=== PATIENT | male | born 1990 | race Caucasian/White ===

== ENCOUNTER 2017-12-18 16:10 | Inpatient (IN) | payer BC ==
[2017-12-18 16:48] VITALS: BMI 27.4
--- NOTE | 2017-12-18 17:21 | HP ---
CIWA Score - CIWA Score Nausea/Vomitin Muscle Tremors: 2 Anxiety: 3 Agitation: 3 Paroxysmal Sweats: 2 Orientation: 0-Oriented Tacttile Disturbances: 2-Mild Itch/Numbness/Burn Auditory Disturbances: 0-None Visual Disturbances: 0-None Headache: 2-Mild CIWA-Ar Total Score: 16 Admission ROS S - HPI Chief Complaint: " I want to get clean and go to rehab." Allergies/Adverse Reactions: Allergies Allergy/AdvReac Type Severity Reaction Status Date / Time No Known Allergies Allergy Verified 12/18/17 17:08 History of Present Illness: 26 yo male with hx of nicotine and alcohol dependence is here seeking detox for the first time. 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 PMHX: denies any medical problems , psychiatric: depression and anxiety. Denies suicidal / homicidal ideation . Reports hx of suicide attempt at 17 yo while under the influence of cocaine tried to jump off a building. Exam Limitations: No Limitations - Ebola screening Have you traveled outside of the country in the last 21 days: No Have you had contact with anyone from an Ebola affected area: No Have you been sick,other than usual withdrawal symptoms: No Do you have a fever: No - Review of Systems Constitutional: Changes in sleep EENT: reports: No Symptoms Reported Respiratory: reports: No Symptoms reported Cardiac: reports: Chest Pain (hx of chest pain for three month, as per patient was evalauted by PMD one month ago, no CP no cardiac causes) GI: reports: Nausea, Abdominal cramping : reports: Dysuria Musculoskeletal: reports: Back Pain, Joint Pain Integumentary: reports: No Symptoms Reported Neuro: reports: Headache, Dizziness Endocrine: reports: Increased Thirst Hematology: reports: No Symptoms Reported Psychiatric: reports: Orientated x3, Anxious Other Systems: Reviewed and Negative Patient History - Patient Medical History Hx Anemia: No Hx Asthma: No Hx Chronic Obstructive Pulmonary Disease (COPD): No Hx Cancer: No Hx Cardiac Disorders: No Hx Congestive Heart Failure: No Hx Hypertension: No Hx Hypercholesterolemia: No Hx Pacemaker: No HX Cerebrovascular Accident: No Hx Seizures: No Hx Dementia: No Hx Diabetes: No Hx Gastrointestinal Disorders: No Hx Liver Disease: No Hx Genitourinary Disorders: No Hx Sexually Transmitted Disorders: Yes (Hx of gonnorhea.) Hx Renal Disease (ESRD): No Hx Thyroid Disease: No Hx Human Immunodeficiency Virus (HIV): No Hx Hepatitis C: No Hx Depression: Yes Hx Suicide Attempt: Yes (at 17 yo ) Hx Bipolar Disorder: No Hx Schizophrenia: No - Patient Surgical History Past Surgical History: No - PPD History Previous Implant?: Yes Documented Results: Negative w/o proof Implanted On Prior [facility] Admission?: No PPD to be Administered?: Yes - Smoking Cessation Smoking history: Current every day smoker Have you smoked in the past 12 months: Yes Aproximately how many cigarettes per day: 20 Hx Chewing Tobacco Use: No Initiated information on smoking cessation: Yes 'Breaking Loose' booklet given: 12/18/17 - Substance & Tx. History Hx Alcohol Use: Yes Hx Substance Use: Yes Substance Use Type: Alcohol, Marijuana Hx Substance Use Treatment: No - Substances Abused Alcohol Route: Oral Frequency: Daily Amount used: 4-5 24 OZ BEERS Age of first use: 16 Date of Last Use: 12/18/17 Marijuana/Hashish Route: Smoking Frequency: Daily Amount used: 4-5 BLUNTS Age of first use: 16 Date of Last Use: 12/18/17 Family Disease History - Family Disease History Family Disease History: Other: Mother (alive, insomnia, Hep C, Bipolar, Lupus, Liver Cirrhosis ) Admission Physical Exam S - Vital Signs Vital Signs: Vital Signs - 24 hr 12/18/17 16:43 Temperature 98.8 F Pulse Rate 66 Respiratory 18 Rate Blood Pressure 121/70 - Physical General Appearance: Yes: Appropriately Dressed, Mild Distress, Sweating, Anxious HEENTM: Yes: EOMI, Hearing grossly Normal, Normal ENT Inspection, Normocephalic , Normal Voice, SHANON, Pharynx Normal, Tm's normal Respiratory: Yes: Chest Non-Tender, Lungs Clear, Normal Breath Sounds, No Respiratory Distress, No Accessory Muscle Use Neck: Yes: Within Normal Limits Breast: Yes: Breast Exam Deferred Cardiology: Yes: Regular Rhythm, Regular Rate Abdominal: Yes: Normal Bowel Sounds, Non Tender, Flat, Soft Genitourinary: Yes: Within Normal Limits Back: Yes: Normal Inspection Musculoskeletal: Yes: full range of Motion, Gait Steady, Pelvis Stable Extremities: Yes: Normal Capillary Refill, Normal Inspection, Normal Range of Motion, Non-Tender Neurological: Yes: supervisor slate splitting II-XII NML intact, Fully Oriented, Alert, Motor Strength 5/5 Integumentary: Yes: Normal Color, Warm, Moist Lymphatic: Yes: Within Normal Limits - Diagnostic (1) Anxious mood Current Visit: Yes Status: Acute (2) Alcohol dependence with withdrawal Current Visit: Yes Status: Acute (3) Nicotine dependence Current Visit: Yes Status: Acute Qualifiers: Nicotine product type: cigarettes (4) Nausea Current Visit: Yes Status: Acute Cleared for Admission [facility] - Detox or Rehab [facility] Level of Care: Medically Managed Detox Regimen/Protocol: Librium [facility] Breath Alcohol Content Breath Alcohol Content: 0 Urine Drug Screen - Results Drug Screen Negative: No Urine Drug Screen Results: THC-Marijuana
[2017-12-18] MEDS ORDERED: LOPERAMIDE HCL 2 MG CAPSULE PO PRN (17:28)
[2017-12-18] MEDS ORDERED: guaiFENesin/D-METHORPHAN HB 10 ML UNIT-DOSE CUPS PO PRN (17:28)
[2017-12-18] MEDS ORDERED: MAGNESIUM CITRATE 300 ML BOTTLE PO PRN (17:28)
[2017-12-18] MEDS ORDERED: hydrOXYzine PAMOATE 50 MG CAPSULE (FP) PO PRN (17:28)
[2017-12-18] MEDS ORDERED: MAG HYDROX/AL HYDROX/SIMETH 30 ML UNIT-DOSE CUP PO PRN (17:28)
[2017-12-18] MEDS ORDERED: MENTHOL/PHENOL 1 EACH UD MM PRN (17:28)
[2017-12-18] MEDS ORDERED: chlordiazePOXIDE HCL 25 MG CAPSULE PO PRN (17:28)
[2017-12-18] MEDS ORDERED: ACETAMINOPHEN 325 MG TABLET (FP) PO PRN (17:28)
[2017-12-18] MEDS ORDERED: MAGNESIUM HYDROX 2400MG/30ML ORAL SUSPENSION 30 ML CUP PO PRN (17:28)
[2017-12-18] MEDS ORDERED: P-EPHED 60MG/TRIPROLIDI 2.5MG TABLET PO PRN (17:28)
[2017-12-18] MEDS ORDERED: IBUPROFEN 400 MG TABLET (FP) PO PRN (17:28)
[2017-12-18] MEDS ORDERED: chlordiazePOXIDE HCL 25 MG CAPSULE PO ONE (18:15)
[2017-12-18] MEDS: THIAMINE HCL 100 MG TABLET (FP) PO SCH (22:12)
[2017-12-18] MEDS: chlordiazePOXIDE HCL 25 MG CAPSULE PO SCH (22:13)
[2017-12-18 23:14] LABS: URINE APPEARANCE CLEAR; URINE BILIRUBIN NEGATIVE (<2.0 mg/dL); URINE COLOR YELLOW; URINE GLUCOSE (UA) NEGATIVE (NEGATIVE); URINE KETONE NEGATIVE (NEGATIVE); URINE LEUK ESTERASE NEGATIVE (NEGATIVE); URINE NITRITE NEGATIVE (NEGATIVE); URINE PROTEIN NEGATIVE (NEGATIVE); URINE UROBILINOGEN NEGATIVE mg/dL (0.2-1.0)
[2017-12-19] MEDS: chlordiazePOXIDE HCL 25 MG CAPSULE PO SCH ×4 (05:24→22:06)
[2017-12-19 10:12] LABS: HEMATOCRIT 44.2 % (35.4-49); MCHC 33.9 g/dl (32.0-35.9); MEAN CELL VOLUME 97.4 fl (80-96); MEAN PLT VOLUME 9.7 fl (7.5-11.1); PLATELET COUNT 197 K/MM3 (134-434); RBC 4.53 M/mm3 (4.00-5.60); RDW 12.3 % (11.9-15.9); WHITE BLOOD COUNT 6.8 K/mm3 (4.0-10.0)
[2017-12-19] MEDS: PRENATAL VITAMINS W/ FOLIC ACID TABLET (FP) PO SCH (10:12)
[2017-12-19] MEDS: NICOTINE 21 MG/24 HOURS TOPICAL PATCH TD SCH (10:12)
--- NOTE | 2017-12-19 10:14 | CONSULT ---
[facility] Psychiatric Consult - Data Date of interview: 12/19/17 Admission source: [facility] Identifying data: Patient is a 26 year old single male, father of two, unemployed, and currently homeless. This is patient's first admission to detox at [facility]. Pt. admitted to for alcohol and marijuana dependence. Substance Abuse History: Smoking Cessation. Smoking history: Current every day smoker. Have you smoked in the past 12 months: Yes. Aproximately how many cigarettes per day: 20. Hx Chewing Tobacco Use: No. Initiated information on smoking cessation: Yes. 'Breaking Loose' booklet given: 12/18/17. - Substance & Tx. History. Hx Alcohol Use: Yes. Hx Substance Use: Yes. Substance Use Type : Alcohol, Marijuana. Hx Substance Use Treatment: No. - Substances Abused. * * Alcohol. Route: Oral. Frequency: Daily. Amount used: 4-5 24 OZ BEERS. Age of first use: 16. Date of Last Use: 12/18/17. Marijuana/Hashish. Route: Smoking. Frequency: Daily. Amount used: 4-5 BLUNTS. Age of first use: 16. Date of Last Use: 12/18/17 Medical History: Denies. Psychiatric History: Pt. denies h/o psychiatric hospitalization and suicide attempt. Pt. is currently court mandated to attend to [facility] outpatient program and reports seeing a psychiatrist whom gave him a prescription of seroquel 100mg. Pt. states he has not picked up the prescription yet. Pt. reports h/o poor sleep but reports sleeping well last night. Physical/Sexual Abuse/Trauma History: Denies. Mental Status Exam - Mental Status Exam Alert and Oriented to: Time, Place, Person Cognitive Function: Good Patient Appearance: Well Groomed Mood: Hopeful Affect: Mood Congruent Patient Behavior: Appropriate, Cooperative Speech Pattern: Clear, Appropriate Voice Loudness: Normal Thought Process: Intact, Goal Oriented Thought Disorder: Not Present Hallucinations: Denies Suicidal Ideation: Denies Homicidal Ideation: Denies Insight/Judgement: Poor Sleep: Fair Muscle strength/Tone: Normal Gait/Station: Normal Psychiatric Findings - Problem List ([place] 1, 2,3) (1) Alcohol dependence with withdrawal Current Visit: Yes Status: Acute Qualifiers: Complication of substance-induced condition: uncomplicated Qualified Code(s ): F10.230 - Alcohol dependence with withdrawal, uncomplicated (2) Nicotine dependence Current Visit: Yes Status: Acute Qualifiers: Nicotine product type: cigarettes Substance use status: in withdrawal Qualified Code(s): F17.213 - Nicotine dependence, cigarettes, with withdrawal (3) Cannabis dependence Current Visit: Yes Status: Acute (4) Substance-induced sleep disorder Current Visit: Yes Status: Acute - Initial Treatment Plan Initial Treatment Plan: Psychoeducation provided. Detoxification in progress. Melatonin 5 mg ordered by [facility]. Pt. requesting to accept melatonin before accepting alternative sleep aids. Will continue to monitor.
[2017-12-19 10:19] LABS: CHLORIDE 106 mmol/L (98-107); POTASSIUM 4.3 mmol/L (3.5-5.1); SODIUM 140 mmol/L (136-145)
--- NOTE | 2017-12-19 10:47 | PN ---
S CIWA - CIWA Score Nausea/Vomitin-No Nausea/No Vomiting Muscle Tremors: 4-Moderate,w/Arms Extend Anxiety: 4-Mod. Anxious/Guarded Agitation: 4-Moderately Restless Paroxysmal Sweats: 1-Minimal Palms Moist Orientation: 0-Oriented Tacttile Disturbances: 0-None Auditory Disturbances: 0-None Visual Disturbances: 0-None Headache: 0-None Present CIWA-Ar Total Score: 13 BHS Progress Note (SOAP) Subjective: ANXIETY,TREMORS,FATIGUE. Objective: 12/19/17 10:46 Vital Signs 12/19/17 12/19/17 05:47 10:10 Temperature 96.8 F L 97.2 F L Pulse Rate 62 69 Respiratory 18 18 Rate Blood Pressure 102/68 112/63 Laboratory Tests 12/18/17 12/19/17 12/19/17 Unknown 07:00 07:00 WBC 6.8 RBC 4.53 Hgb 15.0 Hct 44.2 MCV 97.4 H MCH 33.0 MCHC 33.9 RDW 12.3 Plt Count 197 MPV 9.7 Sodium 140 Potassium 4.3 Chloride 106 Urine Color Yellow Urine Appearance Clear Urine pH 7.0 Ur Specific [place] 1.021 Urine Protein Negative Urine Glucose (UA) Negative Urine Ketones Negative Urine Blood Negative Urine Nitrite Negative Urine Bilirubin Negative Urine Urobilinogen Negative Ur Leukocyte Esterase Negative OTHER LABS PENDING Assessment: 12/19/17 10:47 WITHDRAWAL SX Plan: CONTINUE DETOX
[2017-12-19 11:26] LABS: ALBUMIN 3.8 g/dl (3.4-5.0); ALK PHOS 82 U/L (45-117); ANION GAP 8 (8-16); BILIRUBIN,TOTAL 0.6 mg/dL (0.2-1.0); BLOOD UREA NITROGEN 21 mg/dL (7-18); CALCIUM 8.7 mg/dL (8.5-10.1); CO2 26 mmol/L (21-32); CREATININE 0.9 mg/dL (0.7-1.3); GLUCOSE,RANDOM 85 mg/dL (74-106); SGOT/AST 14 U/L (15-37); SGPT/ALT 26 U/L (12-78); TOT PROT 7.3 g/dl (6.4-8.2)
--- NOTE | 2017-12-19 14:19 | EKG ---
Test Reason : Blood Pressure : / mmHG Vent. Rate : 069 BPM Atrial Rate : 069 BPM P-R Int : 134 ms QRS Dur : 086 ms QT Int : 386 ms P-R-T Axes : 071 078 067 degrees QTc Int : 413 ms NORMAL SINUS RHYTHM WITH SINUS ARRHYTHMIA NORMAL ECG NO PREVIOUS ECGS AVAILABLE Confirmed by MD Zoya, Doyle ([id number]) on 12/19/2017 2:18:32 PM Referred By: Confirmed By:Doyle Kenny MD
[2017-12-19] MEDS: THIAMINE HCL 100 MG TABLET (FP) PO SCH (22:06)
[2017-12-19] MEDS: MELATONIN 5 MG TABLETS PO PRN (22:06)
[2017-12-20] MEDS: chlordiazePOXIDE HCL 25 MG CAPSULE PO SCH ×3 (05:45→17:32)
[2017-12-20] MEDS: NICOTINE 21 MG/24 HOURS TOPICAL PATCH TD SCH (10:04)
[2017-12-20] MEDS: PRENATAL VITAMINS W/ FOLIC ACID TABLET (FP) PO SCH (10:04)
[2017-12-20] MEDS: NICOTINE POLACRILEX 2 MG GUM BC PRN ×3 (10:05→17:33)
--- NOTE | 2017-12-20 10:52 | PN ---
S CIWA - CIWA Score Nausea/Vomitin-No Nausea/No Vomiting Muscle Tremors: 3 Anxiety: 4-Mod. Anxious/Guarded Agitation: 4-Moderately Restless Paroxysmal Sweats: 1-Minimal Palms Moist Orientation: 0-Oriented Tacttile Disturbances: 0-None Auditory Disturbances: 0-None Visual Disturbances: 0-None Headache: 0-None Present CIWA-Ar Total Score: 12 BHS Progress Note (SOAP) Subjective: ANXIETY,SWEATS, FATIGUE. Objective: 12/20/17 10:51 Vital Signs 12/20/17 12/20/17 12/20/17 03:30 06:25 09:29 Temperature 96.9 F L 97.0 F L Pulse Rate 62 74 Respiratory 18 18 18 Rate Blood Pressure 104/70 109/63 Laboratory Tests 12/18/17 12/19/17 12/19/17 Unknown 07:00 07:00 WBC 6.8 RBC 4.53 Hgb 15.0 Hct 44.2 MCV 97.4 H MCH 33.0 MCHC 33.9 RDW 12.3 Plt Count 197 MPV 9.7 Sodium Potassium Chloride Carbon Dioxide Anion Gap BUN Creatinine Creat Clearance w eGFR Random Glucose Calcium Total Bilirubin AST ALT Alkaline Phosphatase Total Protein Albumin Urine Color Yellow Urine Appearance Clear Urine pH 7.0 Ur Specific [place] 1.021 Urine Protein Negative Urine Glucose (UA) Negative Urine Ketones Negative Urine Blood Negative Urine Nitrite Negative Urine Bilirubin Negative Urine Urobilinogen Negative Ur Leukocyte Esterase Negative RPR Titer HIV 1&2 Antibody Screen Negative HIV P24 Antigen Negative 12/19/17 12/19/17 07:00 07:00 WBC RBC Hgb Hct MCV MCH MCHC RDW Plt Count MPV Sodium 140 Potassium 4.3 Chloride 106 Carbon Dioxide 26 Anion Gap 8 BUN 21 H Creatinine 0.9 Creat Clearance w eGFR > 60 Random Glucose 85 Calcium 8.7 Total Bilirubin 0.6 AST 14 L ALT 26 Alkaline Phosphatase 82 Total Protein 7.3 Albumin 3.8 Urine Color Urine Appearance Urine pH Ur Specific [place] Urine Protein Urine Glucose (UA) Urine Ketones Urine Blood Urine Nitrite Urine Bilirubin Urine Urobilinogen Ur Leukocyte Esterase RPR Titer Nonreactive HIV 1&2 Antibody Screen HIV P24 Antigen Assessment: 12/20/17 10:52 WITHDRAWAL SX Plan: CONTINUE DETOX
[2017-12-20] MEDS: chlordiazePOXIDE 5 MG CAPSULE PO SCH (22:26)
[2017-12-20] MEDS: THIAMINE HCL 100 MG TABLET (FP) PO SCH (22:27)
[2017-12-21] MEDS: chlordiazePOXIDE 5 MG CAPSULE PO SCH ×3 (05:34→17:20)
[2017-12-21] MEDS: PRENATAL VITAMINS W/ FOLIC ACID TABLET (FP) PO SCH (10:11)
[2017-12-21] MEDS: NICOTINE POLACRILEX 2 MG GUM BC PRN (10:11)
[2017-12-21] MEDS: NICOTINE 21 MG/24 HOURS TOPICAL PATCH TD SCH (10:11)
--- NOTE | 2017-12-21 10:14 | PN ---
BHS Progress Note (SOAP) Subjective: ALERT O X 3. OOB AMBULATING ON THE UNIT WITH STEADY GAIT. Objective: 12/21/17 10:13 Vital Signs 12/21/17 12/21/17 12/21/17 03:30 06:20 06:30 Temperature 97.0 F L Pulse Rate 70 Respiratory 18 18 18 Rate Blood Pressure 115/67 12/21/17 09:29 Temperature 98.4 F Pulse Rate 72 Respiratory 16 Rate Blood Pressure 100/63 Laboratory Tests 12/18/17 12/19/17 12/19/17 Unknown 07:00 07:00 WBC 6.8 RBC 4.53 Hgb 15.0 Hct 44.2 MCV 97.4 H MCH 33.0 MCHC 33.9 RDW 12.3 Plt Count 197 MPV 9.7 Sodium Potassium Chloride Carbon Dioxide Anion Gap BUN Creatinine Creat Clearance w eGFR Random Glucose Calcium Total Bilirubin AST ALT Alkaline Phosphatase Total Protein Albumin Urine Color Yellow Urine Appearance Clear Urine pH 7.0 Ur Specific [place] 1.021 Urine Protein Negative Urine Glucose (UA) Negative Urine Ketones Negative Urine Blood Negative Urine Nitrite Negative Urine Bilirubin Negative Urine Urobilinogen Negative Ur Leukocyte Esterase Negative RPR Titer HIV 1&2 Antibody Screen Negative HIV P24 Antigen Negative 12/19/17 12/19/17 07:00 07:00 WBC RBC Hgb Hct MCV MCH MCHC RDW Plt Count MPV Sodium 140 Potassium 4.3 Chloride 106 Carbon Dioxide 26 Anion Gap 8 BUN 21 H Creatinine 0.9 Creat Clearance w eGFR > 60 Random Glucose 85 Calcium 8.7 Total Bilirubin 0.6 AST 14 L ALT 26 Alkaline Phosphatase 82 Total Protein 7.3 Albumin 3.8 Urine Color Urine Appearance Urine pH Ur Specific [place] Urine Protein Urine Glucose (UA) Urine Ketones Urine Blood Urine Nitrite Urine Bilirubin Urine Urobilinogen Ur Leukocyte Esterase RPR Titer Nonreactive HIV 1&2 Antibody Screen HIV P24 Antigen Assessment: 12/21/17 10:13 WITHDRAWAL SX Plan: CONTINUE DETOX
[2017-12-21] MEDS: MELATONIN 5 MG TABLETS PO PRN (22:02)
[2017-12-21] MEDS: THIAMINE HCL 100 MG TABLET (FP) PO SCH (22:03)
[2017-12-21] MEDS: chlordiazePOXIDE HCL 10 MG CAPSULE PO SCH (22:03)
[2017-12-22] MEDS: chlordiazePOXIDE HCL 10 MG CAPSULE PO SCH ×2 (05:32→10:19)
[2017-12-22] MEDS: NICOTINE POLACRILEX 2 MG GUM BC PRN (06:48)
[2017-12-22 09:23] VITALS: BP 136/86; PULSE 85; TEMP 98
[2017-12-22] MEDS: NICOTINE 21 MG/24 HOURS TOPICAL PATCH TD SCH (10:19)
[2017-12-22] MEDS: PRENATAL VITAMINS W/ FOLIC ACID TABLET (FP) PO SCH (10:19)
--- NOTE | 2017-12-22 18:13 | PN ---
BHS Progress Note (SOAP) Subjective: Patient denies current Detox symptoms and reports that he feels well overall. Objective: PATIENT A & O X 3, OBSERVED AMBULATING ON UNIT. NO ACUTE DISTRESS. 12/22/17 18:12 Vital Signs Temperature 98.0 F 12/22/17 09:23 Pulse Rate 85 12/22/17 09:23 Respiratory Rate 18 12/22/17 09:23 Blood Pressure 136/86 12/22/17 09:23 O2 Sat by Pulse Oximetry (%) Laboratory Tests 12/18/17 12/19/17 12/19/17 Unknown 07:00 07:00 WBC 6.8 RBC 4.53 Hgb 15.0 Hct 44.2 MCV 97.4 H MCH 33.0 MCHC 33.9 RDW 12.3 Plt Count 197 MPV 9.7 Sodium Potassium Chloride Carbon Dioxide Anion Gap BUN Creatinine Creat Clearance w eGFR Random Glucose Calcium Total Bilirubin AST ALT Alkaline Phosphatase Total Protein Albumin Urine Color Yellow Urine Appearance Clear Urine pH 7.0 Ur Specific [place] 1.021 Urine Protein Negative Urine Glucose (UA) Negative Urine Ketones Negative Urine Blood Negative Urine Nitrite Negative Urine Bilirubin Negative Urine Urobilinogen Negative Ur Leukocyte Esterase Negative RPR Titer HIV 1&2 Antibody Screen Negative HIV P24 Antigen Negative 12/19/17 12/19/17 07:00 07:00 WBC RBC Hgb Hct MCV MCH MCHC RDW Plt Count MPV Sodium 140 Potassium 4.3 Chloride 106 Carbon Dioxide 26 Anion Gap 8 BUN 21 H Creatinine 0.9 Creat Clearance w eGFR > 60 Random Glucose 85 Calcium 8.7 Total Bilirubin 0.6 AST 14 L ALT 26 Alkaline Phosphatase 82 Total Protein 7.3 Albumin 3.8 Urine Color Urine Appearance Urine pH Ur Specific [place] Urine Protein Urine Glucose (UA) Urine Ketones Urine Blood Urine Nitrite Urine Bilirubin Urine Urobilinogen Ur Leukocyte Esterase RPR Titer Nonreactive HIV 1&2 Antibody Screen HIV P24 Antigen LABS NOTED. Assessment: 12/22/17 18:12 COMPLETION OF DETOX REGIMEN. Plan: PATIENT SCHEDULED FOR DISCHARGE FROM DETOX UNIT TODAY.
--- NOTE | 2017-12-22 18:17 | DS ---
[facility] Detox Discharge Summary Admission Date: 12/18/17 Discharge Date: 12/22/17 - History Present History: Alcohol Dependence, Cannabis Dependence Additional Comments: PATIENT GOING TO [facility] ([place] FOR AFTERCARE. PATIENT WAS DISCHARGED FROM DETOX UNIT IN STABLE MEDICAL CONDITION. Pertinent Past History: Anxiety, Depression, Nausea, Nicotine Dependence. - Physical Exam Results Vital Signs: Vital Signs Temperature 98.0 F 12/22/17 09:23 Pulse Rate 85 12/22/17 09:23 Respiratory Rate 18 12/22/17 09:23 Blood Pressure 136/86 12/22/17 09:23 O2 Sat by Pulse Oximetry (%) Pertinent Admission Physical Exam Findings: WITHDRAWAL SYMPTOMS. Laboratory Tests 12/18/17 12/19/17 12/19/17 Unknown 07:00 07:00 WBC 6.8 RBC 4.53 Hgb 15.0 Hct 44.2 MCV 97.4 H MCH 33.0 MCHC 33.9 RDW 12.3 Plt Count 197 MPV 9.7 Sodium Potassium Chloride Carbon Dioxide Anion Gap BUN Creatinine Creat Clearance w eGFR Random Glucose Calcium Total Bilirubin AST ALT Alkaline Phosphatase Total Protein Albumin Urine Color Yellow Urine Appearance Clear Urine pH 7.0 Ur Specific [place] 1.021 Urine Protein Negative Urine Glucose (UA) Negative Urine Ketones Negative Urine Blood Negative Urine Nitrite Negative Urine Bilirubin Negative Urine Urobilinogen Negative Ur Leukocyte Esterase Negative RPR Titer HIV 1&2 Antibody Screen Negative HIV P24 Antigen Negative 12/19/17 12/19/17 07:00 07:00 WBC RBC Hgb Hct MCV MCH MCHC RDW Plt Count MPV Sodium 140 Potassium 4.3 Chloride 106 Carbon Dioxide 26 Anion Gap 8 BUN 21 H Creatinine 0.9 Creat Clearance w eGFR > 60 Random Glucose 85 Calcium 8.7 Total Bilirubin 0.6 AST 14 L ALT 26 Alkaline Phosphatase 82 Total Protein 7.3 Albumin 3.8 Urine Color Urine Appearance Urine pH Ur Specific [place] Urine Protein Urine Glucose (UA) Urine Ketones Urine Blood Urine Nitrite Urine Bilirubin Urine Urobilinogen Ur Leukocyte Esterase RPR Titer Nonreactive HIV 1&2 Antibody Screen HIV P24 Antigen LABS NOTED. - Treatment Hospital Course: Detox Protocol Followed, Detoxed Safely, Responded well, Discharged Condition Good, Rehab Referral Accepted Patient has Accepted a Rehab Referral to: [facility] ([place] - Medication Discharge Medications: Ambulatory Orders Quetiapine Fumarate [Seroquel -] 100 mg PO HS 12/18/17 - Diagnosis (1) Alcohol dependence with withdrawal Status: Acute Qualifiers: Complication of substance-induced condition: uncomplicated Qualified Code(s ): F10.230 - Alcohol dependence with withdrawal, uncomplicated (2) Anxious mood Status: Acute (3) Cannabis dependence Status: Acute (4) Nausea Status: Acute (5) Nicotine dependence Status: Acute Qualifiers: Nicotine product type: cigarettes Substance use status: in withdrawal Qualified Code(s): F17.213 - Nicotine dependence, cigarettes, with withdrawal (6) Substance-induced sleep disorder Status: Acute - AMA Did Patient Leave Against Medical Advice: No
== END 2017-12-22 10:00 | disposition home or self-care (01) | DRG 775 ==
LOC: YASAS 16:10 → Y3N 17:56
PROVIDERS: ADMIT Family Medicine Addiction Medicine; ATTEND Family Medicine Addiction Medicine
PROC: HZ2ZZZZ Detoxification Services for Substance Abuse Treatment (ICD-10-PCS; principal; 2017-12-18)
DX: F10.230 Alcohol dependence with withdrawal, uncomplicated (principal); F12.20 Cannabis dependence, uncomplicated; F17.213 Nicotine dependence, cigarettes, with withdrawal; F41.9 Anxiety disorder, unspecified; F19.282 Other psychoactive substance dependence with psychoactive substance-induced sleep disorder; R11.0 Nausea; Z91.5 Personal history of self-harm; Z86.19 Personal history of other infectious and parasitic diseases
CPT/HCPCS: 36415; 80053; 81003; 85027; 86593; 87389; 93005; 93010

== ENCOUNTER 2018-05-30 15:51 | Inpatient (IN) | payer OTHER ==
[2018-05-30 16:23] VITALS: BMI 27.1
--- NOTE | 2018-05-30 18:48 | HP ---
CIWA Score Nausea/Vomitin (nausea w/ vomiting) Muscle Tremors: 4-Moderate,w/Arms Extend Anxiety: 1-Mildly Anxious Agitation: 4-Moderately Restless Paroxysmal Sweats: 4-Forehead w/Sweat Beads Orientation: 1-Uncertain about Date Tacttile Disturbances: 0-None Auditory Disturbances: 0-None Visual Disturbances: 0-None Headache: 3-Moderate CIWA-Ar Total Score: 22 - Admission Criteria [facility]ASAS Guidelines: Admission for Medically Managed Detox: Requires at least one of the followin. CIWA greater than 12 2. Seizures within the past 24 hours 3. Delirium tremens within the past 24 hours 4. Hallucinations within the past 24 hours 5. Acute intervention needed for co occurring medical disorder 6. Acute intervention needed for co occurring psychiatric disorder 7. Severe withdrawal that cannot be handled at a lower level of care (continued vomiting, continued diarrhea, abnormal vital signs) requiring intravenous medication and/or fluids 8. Patient presents the following: CIWA greater than 12 Admission Criteria Met: Admission criteria met Admission ROS [facility] Chief Complaint: Here for alcohol withdrawal. Allergies/Adverse Reactions: Allergies Allergy/AdvReac Type Severity Reaction Status Date / Time No Known Allergies Allergy Verified 12/18/17 17:08 History of Present Illness: States here for alcohol use disorder w/ co-use of THC, Crystal meth Alcohol use began at age States hx auditory and visual hallucinations when using drugs. Denies AVH at this moment. Hx depression. Has had prior suicide attempts. Denies current thoughts of harming self. Pharmacy verification: Last Vistaril picked up 11/13/17 and last Seroquel picked up in 01/04/18; One hx blackout 3 months ago. One overdose w/ crystal meth in December 2017 Denies seizures. Recent hx numbness fingers and toes Longest sobriety 1 year w/ attending community support group. Denies other significant PMH/PSH Exam Limitations: No Limitations - Ebola screening Have you traveled outside of the country in the last 21 days: No Have you had contact with anyone from an Ebola affected area: No Have you been sick,other than usual withdrawal symptoms: No Do you have a fever: No - Review of Systems Constitutional: Chills, Diaphoresis, Changes in sleep (Difficulty falling and staying asleep - uses Seroquel prn) EENT: reports: Dental Problems (Pain in back teeth. Chews and swallows ok.) Respiratory: reports: No Symptoms reported Cardiac: reports: No Symptoms Reported GI: reports: Nausea (r/t withdrawal), Vomiting (r/t withdrawal) : reports: No Symptoms Reported Musculoskeletal: reports: Back Pain (Chronic LBP sharp shhoting pain from low back up to neck. Pain is a '7'. Increases w/ sitting for a long time. Improves w / laying down.) Integumentary: reports: No Symptoms Reported Neuro: reports: Numbness (Numbness and tingling in fingers and toes x 1-2 weeks. ), Tremors (Tremors and twitching) Endocrine: reports: No Symptoms Reported Hematology: reports: No Symptoms Reported Psychiatric: reports: Judgement Intact, Orientated x3 (Missed date by 1 day), Agitated, Anxious, Depressed (Denies current thoughts of harming self or others) Patient History - Patient Medical History Hx Anemia: No Hx Asthma: No Hx Chronic Obstructive Pulmonary Disease (COPD): No Hx Cancer: No Hx Cardiac Disorders: No Hx Congestive Heart Failure: No Hx Hypertension: No Hx Hypercholesterolemia: No Hx Pacemaker: No HX Cerebrovascular Accident: No Hx Seizures: No Hx Dementia: No Hx Diabetes: No Hx Gastrointestinal Disorders: No Hx Liver Disease: No Hx Genitourinary Disorders: No Hx Sexually Transmitted Disorders: No Hx Renal Disease (ESRD): No Hx Thyroid Disease: No Hx Human Immunodeficiency Virus (HIV): No ( Neg - 2017) Hx Hepatitis C: No Hx Depression: Yes (Denies current thoughts of harming self or others) Hx Suicide Attempt: Yes (Pt states he tried to cut himself 4 months ago under the influence.) Hx Bipolar Disorder: No Hx Schizophrenia: No - Patient Surgical History Past Surgical History: No - PPD History Previous Implant?: Yes Documented Results: Negative w/proof Implanted On Prior [facility] Admission?: Yes Date: 12/20/17 Results: 0 MM PPD to be Administered?: No - Smoking Cessation Smoking history: Current every day smoker Have you smoked in the past 12 months: Yes Aproximately how many cigarettes per day: 20 Hx Chewing Tobacco Use: Yes (Discussed risk of oral cancer) Initiated information on smoking cessation: Yes 'Breaking Loose' booklet given: 05/30/18 - Substance & Tx. History Hx Alcohol Use: Yes Hx Substance Use: Yes Substance Use Type: Alcohol, Marijuana, Tranquilizers (crystal meth) Hx Substance Use Treatment: Yes (detox, rehab) - Substances Abused Alcohol Route: Oral Frequency: Daily Amount used: 12PK BEER AND UP Age of first use: 16 Date of Last Use: 05/30/18 Marijuana/Hashish Route: Smoking Frequency: Daily Amount used: 1/8 OF AN OUNCE Age of first use: 16 Date of Last Use: 05/30/18 CRYSTAL METH Route: Injection Frequency: Daily Amount used: $100 Age of first use: 25 Date of Last Use: 05/28/18 Family Disease History - Family Disease History Family Disease History: Other: Mother (alive, insomnia, Hep C, Bipolar, Lupus, Liver Cirrhosis ) Admission Physical Exam S - Vital Signs Vital Signs: Vital Signs - 24 hr 05/30/18 16:20 Temperature 97.4 F L Pulse Rate 88 Respiratory 18 Rate Blood Pressure 117/63 - Physical General Appearance: Yes: Appropriately Dressed, Mild Distress, Tremorous, Sweating, Anxious HEENTM: Yes: EOMI, Hearing grossly Normal, Normocephalic, Normal Voice, SHANON, Pharynx Normal Respiratory: Yes: Chest Non-Tender, Lungs Clear, Normal Breath Sounds, No Respiratory Distress Neck: Yes: No masses,lesions,Nodules, Supple Breast: Yes: Breast Exam Deferred Cardiology: Yes: Regular Rhythm, Regular Rate, S1, S2 Abdominal: Yes: Flat, Soft, Increased Bowel Sounds, Tenderness (Mid UQ abd tenderness deep palpation. No guarding. No rebound) Genitourinary: Yes: Within Normal Limits Back: Yes: Normal Inspection Musculoskeletal: Yes: full range of Motion, Gait Steady Extremities: Yes: Normal Capillary Refill, Normal Inspection, Normal Range of Motion, Tremors (Tremors hands w/ arms extended) Neurological: Yes: rubber roller grinder II-XII NML intact, Alert, Motor Strength 5/5, Normal Mood /Affect Integumentary: Yes: Normal Color, Dry, Warm Lymphatic: Yes: Within Normal Limits - Diagnostic (1) Methamphetamine dependence Current Visit: Yes Status: Chronic (2) Alcohol dependence with withdrawal Current Visit: Yes Status: Acute Qualifiers: Complication of substance-induced condition: uncomplicated Qualified Code(s ): F10.230 - Alcohol dependence with withdrawal, uncomplicated (3) Cannabis dependence Current Visit: Yes Status: Chronic (4) Nicotine dependence Current Visit: Yes Status: Chronic Qualifiers: Nicotine product type: cigarettes Substance use status: in withdrawal Qualified Code(s): F17.213 - Nicotine dependence, cigarettes, with withdrawal Cleared for Admission [facility] - Detox or Rehab [facility] Level of Care: Medically Managed Detox Regimen/Protocol: Librium [facility] Breath Alcohol Content Breath Alcohol Content: 0 Urine Drug Screen - Results Drug Screen Negative: No Urine Drug Screen Results: THC-Marijuana
[2018-05-30] MEDS ORDERED: MAG HYDROX/AL HYDROX/SIMETH 30 ML UNIT-DOSE CUP PO PRN (19:26)
[2018-05-30] MEDS ORDERED: chlordiazePOXIDE HCL 25 MG CAPSULE PO ONE (19:26)
[2018-05-30] MEDS ORDERED: chlordiazePOXIDE HCL 25 MG CAPSULE PO PRN (19:26)
[2018-05-30] MEDS ORDERED: MAGNESIUM CITRATE 300 ML BOTTLE PO PRN (19:26)
[2018-05-30] MEDS ORDERED: LOPERAMIDE HCL 2 MG CAPSULE PO PRN (19:26)
[2018-05-30] MEDS ORDERED: MAGNESIUM HYDROX 2400MG/30ML ORAL SUSPENSION 30 ML CUP PO PRN (19:26)
[2018-05-30] MEDS ORDERED: ACETAMINOPHEN 325 MG TABLET (FP) PO PRN (19:26)
[2018-05-30] MEDS ORDERED: BENZOCAINE 20 % GEL TUBE MM PRN (19:30)
[2018-05-30] MEDS: THIAMINE HCL 100 MG TABLET (FP) PO SCH (21:15)
[2018-05-30] MEDS: chlordiazePOXIDE HCL 25 MG CAPSULE PO SCH (22:01)
[2018-05-30] MEDS: MELATONIN 5 MG TABLETS PO PRN (22:49)
[2018-05-30] MEDS: NICOTINE POLACRILEX 4 MG GUM BUC PRN (22:49)
[2018-05-30 23:15] LABS: URINE APPEARANCE CLEAR; URINE BILIRUBIN NEGATIVE (<2.0 mg/dL); URINE COLOR LTYELLOW; URINE GLUCOSE (UA) NEGATIVE (NEGATIVE); URINE KETONE NEGATIVE (NEGATIVE); URINE LEUK ESTERASE TRACE (NEGATIVE); URINE NITRITE NEGATIVE (NEGATIVE); URINE PROTEIN NEGATIVE (NEGATIVE); URINE UROBILINOGEN NEGATIVE mg/dL (0.2-1.0)
[2018-05-30 23:20] LABS: URINE HYALINE CAST 1 /lpf; URINE MUCUS RARE
[2018-05-31] MEDS: chlordiazePOXIDE HCL 25 MG CAPSULE PO SCH ×4 (05:27→22:30)
[2018-05-31] MEDS: NICOTINE POLACRILEX 4 MG GUM BUC PRN ×3 (05:28→21:41)
[2018-05-31] MEDS: NICOTINE 21 MG/24 HOURS TOPICAL PATCH TD SCH (10:14)
[2018-05-31] MEDS: PRENATAL VITAMINS W/ FOLIC ACID TABLET (FP) PO SCH (10:14)
[2018-05-31 10:38] LABS: HEMATOCRIT 38.9 % (35.4-49); HEMOGLOBIN 12.8 GM/dL (11.7-16.9); MCH 32.1 pg (25.7-33.7); MCHC 32.9 g/dl (32.0-35.9); MEAN CELL VOLUME 97.4 fl (80-96); MEAN PLT VOLUME 10.1 fl (7.5-11.1); PLATELET COUNT 198 K/MM3 (134-434); RBC 3.99 M/mm3 (4.00-5.60); RDW 12.1 % (11.9-15.9); WHITE BLOOD COUNT 6.9 K/mm3 (4.0-10.0)
[2018-05-31 11:01] LABS: ALBUMIN 3.3 g/dl (3.4-5.0); ALK PHOS 59 U/L (45-117); ANION GAP 7 MMOL/L (8-16); BILIRUBIN,TOTAL 0.2 mg/dL (0.2-1); BLOOD UREA NITROGEN 14 mg/dL (7-18); CALCIUM 8.4 mg/dL (8.5-10.1); CHLORIDE 107 mmol/L (98-107); CO2 27 mmol/L (21-32); CREATININE 0.8 mg/dL (0.55-1.3); GLUCOSE,RANDOM 91 mg/dL (74-106); POTASSIUM 4.1 mmol/L (3.5-5.1); SGOT/AST 10 U/L (15-37); SGPT/ALT 24 U/L (13-61); SODIUM 140 mmol/L (136-145); TOT PROT 6.1 g/dl (6.4-8.2)
--- NOTE | 2018-05-31 11:19 | PN ---
[facility] CIWA - CIWA Score Nausea/Vomitin-Mild Nausea/No Vomiting Muscle Tremors: None Anxiety: 3 Agitation: 3 Paroxysmal Sweats: 2 Orientation: 0-Oriented Tacttile Disturbances: 0-None Auditory Disturbances: 0-None Visual Disturbances: 0-None Headache: 2-Mild CIWA-Ar Total Score: 11 [facility] Progress Note (SOAP) Subjective: PATIENT C/O ANXIETY, RESTLESSNESS, SLEEP DISTURBANCE, SWEATING, HEADACHE AND NAUSEA/DIARRHEA. Objective: 05/31/18 11:17 Vital Signs Temperature 97.8 F 05/31/18 09:31 Pulse Rate 83 05/31/18 09:31 Respiratory Rate 18 05/31/18 09:31 Blood Pressure 119/63 05/31/18 09:31 O2 Sat by Pulse Oximetry (%) Laboratory Tests 05/30/18 05/31/18 05/31/18 22:00 07:00 07:00 WBC 6.9 RBC 3.99 L Hgb 12.8 Hct 38.9 MCV 97.4 H MCH 32.1 MCHC 32.9 RDW 12.1 Plt Count 198 MPV 10.1 Sodium 140 Potassium 4.1 Chloride 107 Carbon Dioxide 27 Anion Gap 7 L BUN 14 Creatinine 0.8 Creat Clearance w eGFR > 60 Random Glucose 91 Calcium 8.4 L Total Bilirubin 0.2 AST 10 L ALT 24 Alkaline Phosphatase 59 Total Protein 6.1 L Albumin 3.3 L Urine Color Ltyellow Urine Appearance Clear Urine pH 6.0 Ur Specific [place] 1.012 Urine Protein Negative Urine Glucose (UA) Negative Urine Ketones Negative Urine Blood Negative Urine Nitrite Negative Urine Bilirubin Negative Urine Urobilinogen Negative Ur Leukocyte Esterase Trace Urine WBC (Auto) 1 Urine RBC (Auto) <1 Hyaline Casts 1 Urine Mucus Rare PE: ALERT AND ORIENTED X 3 SKIN WARM, MILD MOISTURE TO TRUNK AREA EXT FULL ROM, NO EDEMA AMB AD CANDY ANXIOUS 05/31/18 11:19 Assessment: 05/31/18 11:19 WITHDRAWAL SX Plan: CONTINUE DETOX ENCOURAGE ORAL FLUIDS CONTINUE TO MONITOR
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
[2018-05-31] MEDS: THIAMINE HCL 100 MG TABLET (FP) PO SCH (22:30)
[2018-05-31] MEDS: QUEtiapine FUMARATE 50 MG TABLET PO SCH (22:30)
[2018-05-31] MEDS: IBUPROFEN 400 MG TABLET (FP) PO PRN (22:31)
[2018-05-31] MEDS: MELATONIN 5 MG TABLETS PO PRN (23:17)
[2018-06-01] MEDS: chlordiazePOXIDE HCL 25 MG CAPSULE PO SCH ×3 (05:25→17:13)
[2018-06-01] MEDS: NICOTINE 21 MG/24 HOURS TOPICAL PATCH TD SCH (10:42)
[2018-06-01] MEDS: PRENATAL VITAMINS W/ FOLIC ACID TABLET (FP) PO SCH (10:42)
--- NOTE | 2018-06-01 13:33 | PN ---
S CIWA - CIWA Score Nausea/Vomitin Muscle Tremors: 3 Anxiety: 3 Agitation: 3 Paroxysmal Sweats: 3 Orientation: 0-Oriented Tacttile Disturbances: 0-None Auditory Disturbances: 0-None Visual Disturbances: 0-None Headache: 0-None Present CIWA-Ar Total Score: 14 [facility] Progress Note (SOAP) Subjective: Patient denies withdrawal symptoms; patient is anxious Objective: 06/01/18 13:31 Last Vital Signs Temp Pulse Resp BP Pulse Ox 98 F 77 17 101/60 06/01/18 10:10 06/01/18 10:10 06/01/18 10:10 06/01/18 10:10 Laboratory Tests 05/30/18 05/31/18 05/31/18 22:00 07:00 07:00 WBC 6.9 RBC 3.99 L Hgb 12.8 Hct 38.9 MCV 97.4 H MCH 32.1 MCHC 32.9 RDW 12.1 Plt Count 198 MPV 10.1 Sodium Potassium Chloride Carbon Dioxide Anion Gap BUN Creatinine Creat Clearance w eGFR Random Glucose Calcium Total Bilirubin AST ALT Alkaline Phosphatase Total Protein Albumin Urine Color Ltyellow Urine Appearance Clear Urine pH 6.0 Ur Specific [place] 1.012 Urine Protein Negative Urine Glucose (UA) Negative Urine Ketones Negative Urine Blood Negative Urine Nitrite Negative Urine Bilirubin Negative Urine Urobilinogen Negative Ur Leukocyte Esterase Trace Urine WBC (Auto) 1 Urine RBC (Auto) <1 Hyaline Casts 1 Urine Mucus Rare RPR Titer HIV 1&2 Antibody Screen Negative HIV P24 Antigen Negative 05/31/18 05/31/18 07:00 07:00 WBC RBC Hgb Hct MCV MCH MCHC RDW Plt Count MPV Sodium 140 Potassium 4.1 Chloride 107 Carbon Dioxide 27 Anion Gap 7 L BUN 14 Creatinine 0.8 Creat Clearance w eGFR > 60 Random Glucose 91 Calcium 8.4 L Total Bilirubin 0.2 AST 10 L ALT 24 Alkaline Phosphatase 59 Total Protein 6.1 L Albumin 3.3 L Urine Color Urine Appearance Urine pH Ur Specific [place] Urine Protein Urine Glucose (UA) Urine Ketones Urine Blood Urine Nitrite Urine Bilirubin Urine Urobilinogen Ur Leukocyte Esterase Urine WBC (Auto) Urine RBC (Auto) Hyaline Casts Urine Mucus RPR Titer Nonreactive HIV 1&2 Antibody Screen HIV P24 Antigen Labs reviewed Assessment: 06/01/18 13:32 Withdrawal symptoms Plan: Continue detox Encouraged PO water intake
[2018-06-01] MEDS: NICOTINE POLACRILEX 4 MG GUM BUC PRN ×2 (16:35→22:21)
[2018-06-01] MEDS: IBUPROFEN 400 MG TABLET (FP) PO PRN (17:15)
[2018-06-01] MEDS: THIAMINE HCL 100 MG TABLET (FP) PO SCH (22:04)
[2018-06-01] MEDS: chlordiazePOXIDE 5 MG CAPSULE PO SCH (22:04)
[2018-06-01] MEDS: QUEtiapine FUMARATE 50 MG TABLET PO SCH (22:04)
[2018-06-01] MEDS: MELATONIN 5 MG TABLETS PO PRN (22:05)
[2018-06-01] MEDS: MENTHOL/PHENOL 1 EACH UD MM PRN (22:22)
[2018-06-02] MEDS: chlordiazePOXIDE 5 MG CAPSULE PO SCH ×3 (05:45→17:16)
[2018-06-02] MEDS: NICOTINE POLACRILEX 4 MG GUM BUC PRN ×3 (05:48→17:02)
[2018-06-02] MEDS: MENTHOL/PHENOL 1 EACH UD MM PRN (05:49)
[2018-06-02] MEDS: PRENATAL VITAMINS W/ FOLIC ACID TABLET (FP) PO SCH (10:49)
[2018-06-02] MEDS: NICOTINE 21 MG/24 HOURS TOPICAL PATCH TD SCH (10:49)
--- NOTE | 2018-06-02 12:15 | PN ---
[facility] Progress Note (SOAP) Subjective: PT SEEN IN BED. PT REPORTS DETOX PROCEEDING WELL. DENIES ACUTE DISTRESS. Objective: 06/02/18 12:14 Vital Signs 06/02/18 06/02/18 06/02/18 06:30 06:31 09:46 Temperature 97.7 F 96.9 F L Pulse Rate 75 78 Respiratory 18 18 18 Rate Blood Pressure 101/56 L 132/87 Laboratory Tests 05/30/18 05/31/18 05/31/18 22:00 07:00 07:00 WBC 6.9 RBC 3.99 L Hgb 12.8 Hct 38.9 MCV 97.4 H MCH 32.1 MCHC 32.9 RDW 12.1 Plt Count 198 MPV 10.1 Sodium Potassium Chloride Carbon Dioxide Anion Gap BUN Creatinine Creat Clearance w eGFR Random Glucose Calcium Total Bilirubin AST ALT Alkaline Phosphatase Total Protein Albumin Urine Color Ltyellow Urine Appearance Clear Urine pH 6.0 Ur Specific [place] 1.012 Urine Protein Negative Urine Glucose (UA) Negative Urine Ketones Negative Urine Blood Negative Urine Nitrite Negative Urine Bilirubin Negative Urine Urobilinogen Negative Ur Leukocyte Esterase Trace Urine WBC (Auto) 1 Urine RBC (Auto) <1 Hyaline Casts 1 Urine Mucus Rare RPR Titer HIV 1&2 Antibody Screen Negative HIV P24 Antigen Negative 05/31/18 05/31/18 07:00 07:00 WBC RBC Hgb Hct MCV MCH MCHC RDW Plt Count MPV Sodium 140 Potassium 4.1 Chloride 107 Carbon Dioxide 27 Anion Gap 7 L BUN 14 Creatinine 0.8 Creat Clearance w eGFR > 60 Random Glucose 91 Calcium 8.4 L Total Bilirubin 0.2 AST 10 L ALT 24 Alkaline Phosphatase 59 Total Protein 6.1 L Albumin 3.3 L Urine Color Urine Appearance Urine pH Ur Specific [place] Urine Protein Urine Glucose (UA) Urine Ketones Urine Blood Urine Nitrite Urine Bilirubin Urine Urobilinogen Ur Leukocyte Esterase Urine WBC (Auto) Urine RBC (Auto) Hyaline Casts Urine Mucus RPR Titer Nonreactive HIV 1&2 Antibody Screen HIV P24 Antigen Assessment: 06/02/18 12:14 DECREASED W/S Plan: CONTINUE DETOX
[2018-06-02] MEDS: THIAMINE HCL 100 MG TABLET (FP) PO SCH (22:01)
[2018-06-02] MEDS: chlordiazePOXIDE HCL 10 MG CAPSULE PO SCH (22:01)
[2018-06-02] MEDS: QUEtiapine FUMARATE 50 MG TABLET PO SCH (22:01)
[2018-06-02] MEDS: MELATONIN 5 MG TABLETS PO PRN (22:04)
[2018-06-03] MEDS: chlordiazePOXIDE HCL 10 MG CAPSULE PO SCH (05:34)
[2018-06-03] MEDS: MENTHOL/PHENOL 1 EACH UD MM PRN (05:35)
[2018-06-03] MEDS: NICOTINE POLACRILEX 4 MG GUM BUC PRN (05:35)
[2018-06-03 06:23] VITALS: BP 101/59; PULSE 76; TEMP 97.2
--- NOTE | 2018-06-03 11:24 | DS ---
[facility] Detox Discharge Summary Admission Date: 05/30/18 Discharge Date: 06/03/18 - History Present History: Alcohol Dependence, Cannabis Dependence Additional Comments: Patient completed detox successfully. Patient stated that he will be going to [facility] today and a friend will take him there. Patient is A, A, Ox3 , in nad, ambulatory. Patient instructed to follow up with PCP. Pertinent Past History: Alcohol dependence Methamphetamine dependence Cannabis dependence - Physical Exam Results Vital Signs: Vital Signs Temperature 97.2 F L 06/03/18 06:23 Pulse Rate 76 06/03/18 06:23 Respiratory Rate 18 06/03/18 06:23 Blood Pressure 101/59 L 06/03/18 06:23 O2 Sat by Pulse Oximetry (%) Pertinent Admission Physical Exam Findings: Withdrawal symptoms Laboratory Tests 05/30/18 05/31/18 05/31/18 22:00 07:00 07:00 WBC 6.9 RBC 3.99 L Hgb 12.8 Hct 38.9 MCV 97.4 H MCH 32.1 MCHC 32.9 RDW 12.1 Plt Count 198 MPV 10.1 Sodium Potassium Chloride Carbon Dioxide Anion Gap BUN Creatinine Creat Clearance w eGFR Random Glucose Calcium Total Bilirubin AST ALT Alkaline Phosphatase Total Protein Albumin Urine Color Ltyellow Urine Appearance Clear Urine pH 6.0 Ur Specific [place] 1.012 Urine Protein Negative Urine Glucose (UA) Negative Urine Ketones Negative Urine Blood Negative Urine Nitrite Negative Urine Bilirubin Negative Urine Urobilinogen Negative Ur Leukocyte Esterase Trace Urine WBC (Auto) 1 Urine RBC (Auto) <1 Hyaline Casts 1 Urine Mucus Rare RPR Titer HIV 1&2 Antibody Screen Negative HIV P24 Antigen Negative 05/31/18 05/31/18 07:00 07:00 WBC RBC Hgb Hct MCV MCH MCHC RDW Plt Count MPV Sodium 140 Potassium 4.1 Chloride 107 Carbon Dioxide 27 Anion Gap 7 L BUN 14 Creatinine 0.8 Creat Clearance w eGFR > 60 Random Glucose 91 Calcium 8.4 L Total Bilirubin 0.2 AST 10 L ALT 24 Alkaline Phosphatase 59 Total Protein 6.1 L Albumin 3.3 L Urine Color Urine Appearance Urine pH Ur Specific [place] Urine Protein Urine Glucose (UA) Urine Ketones Urine Blood Urine Nitrite Urine Bilirubin Urine Urobilinogen Ur Leukocyte Esterase Urine WBC (Auto) Urine RBC (Auto) Hyaline Casts Urine Mucus RPR Titer Nonreactive HIV 1&2 Antibody Screen HIV P24 Antigen Labs reviewed - Treatment Hospital Course: Detox Protocol Followed, Detoxed Safely, Responded well, Discharged Condition Good, Rehab Referral Accepted - Medication Discharge Medications: Ambulatory Orders hydrOXYzine PAMOATE [Vistaril -] 100 mg PO HS 05/30/18 Quetiapine Fumarate [Seroquel -] 50 mg PO HS #30 tablet 06/03/18 Quetiapine Fumarate [Seroquel -] 50 mg PO HS #30 tablet 06/03/18 - Diagnosis (1) Alcohol dependence with withdrawal Status: Acute Qualifiers: Complication of substance-induced condition: uncomplicated Qualified Code(s ): F10.230 - Alcohol dependence with withdrawal, uncomplicated (2) Substance-induced sleep disorder Status: Acute (3) Cannabis dependence Status: Acute (4) Methamphetamine dependence Status: Acute - AMA Did Patient Leave Against Medical Advice: No (F/U with PCP after completing rehab)
== END 2018-06-03 09:42 | disposition home or self-care (01) | DRG 775 ==
LOC: YASAS 15:51 → Y3N 20:09
PROC: HZ2ZZZZ Detoxification Services for Substance Abuse Treatment (ICD-10-PCS; principal; 2018-05-30)
DX: F10.230 Alcohol dependence with withdrawal, uncomplicated (principal); F15.20 Other stimulant dependence, uncomplicated; F12.20 Cannabis dependence, uncomplicated; F17.213 Nicotine dependence, cigarettes, with withdrawal; F19.282 Other psychoactive substance dependence with psychoactive substance-induced sleep disorder; F32.9 Major depressive disorder, single episode, unspecified; Z91.5 Personal history of self-harm
CPT/HCPCS: 36415; 80053; 81003; 81015; 85027; 86593; 87389